=== PATIENT | female | born 1975 | race Caucasian/White ===

== ENCOUNTER 2017-12-30 19:54 | Emergency (ER) | payer MEDICAID ==
[~2017-12-30] VITALS: Ht 162.6 cm; Wt 67.1 kg
[2017-12-30 20:16] VITALS: BP 133/88
== END 2017-12-30 23:30 | disposition home or self-care (01) ==
LOC: ED 19:54
DX: R21 Rash and other nonspecific skin eruption (principal); I10 Essential (primary) hypertension

== ENCOUNTER 2019-03-13 00:12 | Emergency (ER) | payer BC ==
[~2019-03-13] VITALS: Ht 162.6 cm; Wt 64.6 kg
[2019-03-13 01:11] LABS: UA SPECIFIC GRAVITY 1.025 (1.005-1.035); microscopic required? YES; urine erythrocyte TRACE (NEGATIVE)
[2019-03-13 01:28] LABS: BASOPHIL % 0.4 % (0-2); PLATELET COUNT 239 x10^3mcL (130-400); RED CELL DISTRIBUTION WIDTH 13.5 % (11.5-14.5)
[2019-03-13 01:46] LABS: AMPHETAMINE QUAL UR NONE DETECTED (See below)
[2019-03-13 02:02] LABS: CHLORIDE SERUM 105 mmol/L (98-107); CREATININE SERUM 0.7 mg/dL (0.6-1.0); GFR1 > 60 mL/min; GLUCOSE SERUM 109 mg/dL (74-106); POTASSIUM SERUM 3.3 mmol/L (3.5-5.1); SODIUM SERUM 142 mmol/L (136-145); TOTAL PROTEIN, SERUM 7.5 g/dL (6.4-8.2)
[2019-03-13 02:03] LABS: ALBUMIN 3.8 g/dL (3.4-5.0); ALT/SGPT 22 U/L (14-59); AST/SGOT 16 U/L (15-37); BILIRUBIN TOTAL 0.1 mg/dL (0.20-1.00); CALCIUM 8.8 mg/dL (8.5-10.1)
[2019-03-13 02:04] LABS: ALKALINE PHOSPHATASE 65 U/L (46-116); CHOLESTEROL 175 mg/dL (<200); HDL CHOLESTEROL 61 mg/dL (40-60); LIPASE 198 IU/L (73-393); T4(THYROXINE) 8.1 ug/dL (4.7-13.3)
[2019-03-13 02:51] VITALS: BP 126/85
== END 2019-03-13 02:51 | disposition home or self-care (01) ==
LOC: ED 00:12
PROVIDERS: Emergency Medicine
DX: R07.89 Other chest pain (principal); I10 Essential (primary) hypertension; F41.9 Anxiety disorder, unspecified
CPT/HCPCS: 36415; 83880; 85378